=== PATIENT | female | born 1975 | race Hispanic/Latino ===

== ENCOUNTER 2021-06-12 22:56 | Emergency (ER) | payer BC, OTHER ==
[2021-06-13] MEDS ORDERED: MORPHINE 4 MG/ML SYR ONE (00:21)
[2021-06-13] MEDS ORDERED: NA CHLORIDE 0.9% 1,000 ML ONE (00:22)
[2021-06-13] MEDS ORDERED: ONDANSETRON 4 MG/2 ML VIAL ONE (00:22)
[2021-06-13 00:28] LABS: Absolute Lymphocytes (CBC) 1.3 K/uL (0.7-4.9); Hematocrit 37.2 % (36.0-45.0); Lymphocytes % 24.6 % (15.3-44.8); MPV 8.5 fL (7.6-11.3); RBC Red Blood Cell Count 4.52 M/uL (3.86-4.86)
[2021-06-13 00:54] LABS: Albumin 3.3 g/dL (3.4-5.0); Bilirubin Total 0.2 mg/dL (0.2-1.0); Potassium 3.2 mmol/L (3.5-5.1); Protein, Total 7.2 g/dL (6.4-8.2)
[2021-06-13 02:32] LABS: Urine Specific Gravity/Preg >1.030 (1.005-1.030)
[2021-06-13 02:47] LABS: Urine Bacteria 20-50 /HPF (<20); Urine Mucus 2+ /HPF (NONE SEEN); Urine RBC <5 /HPF (NONE SEEN)
[2021-06-13] MEDS ORDERED: POTASSIUM 25 MEQ EFFERV TAB ONE (03:15)
[2021-06-13] MEDS ORDERED: KETOROLAC 30 MG/ML INJ ONE (03:15)
[2021-06-13] MEDS ORDERED: CEFTRIAXONE 1000 MG/VIAL ONE (03:15)
[2021-06-13] MEDS ORDERED: NA CHLORIDE 0.9% 50 ML ONE (03:15)
--- NOTE | 2021-06-13 04:01 | EDPHYS ---
Physician Documentation [facility] Name: Magy Quintanilla Age: 45 yrs Sex: Female : 1975 Arrival Date: 06/12/2021 Time: 23:01 Bed 14 Private MD: ED Physician Micha Jovel HPI: 06/12 23:55 This 45 yrs old Female presents to ER via Wheelchair with complaints of Back mh7 Pain. 23:56 The patient complains of pain in the right flank. The pain radiates to the right lower mh7 quadrant. Onset: The symptoms/episode began/occurred today. Modifying factors: The symptoms are alleviated by nothing. the symptoms are aggravated by movement, palpation/percussion. 23:56 Associated signs and symptoms: Pertinent negatives: diarrhea, dizziness, dysuria, mh7 fever, urinary frequency, headache, hematuria, nausea, pain radiating to the lower extremities, vomiting. Severity of pain: At its worst the pain was moderate today, in the emergency department the pain is unchanged. 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 - Social history:: Smoking status: Patient reports the use of cigarette tobacco products, denies chronic smoking, but will smoke occasionally. ROS: 23:56 Constitutional: Negative for fever, chills, and weight loss, Eyes: Negative for injury, mh7 pain, redness, and discharge, ENT: Negative for injury, pain, and discharge, Neck: Negative for injury, pain, and swelling, Cardiovascular: Negative for chest pain, palpitations, and edema, Respiratory: Negative for shortness of breath, cough, wheezing, and pleuritic chest pain, : Negative for injury, bleeding, discharge, and swelling, MS/Extremity: Negative for injury and deformity, Skin: Negative for injury, rash, and discoloration, Neuro: Negative for headache, weakness, numbness, tingling, and seizure, Psych: Negative for depression, anxiety, suicide ideation, homicidal ideation, and hallucinations, Allergy/Immunology: Negative for hives, rash, and allergies, Endocrine: Negative for neck swelling, polydipsia, polyuria, polyphagia, and marked weight changes, Hematologic/Lymphatic: Negative for swollen nodes, abnormal bleeding, and unusual bruising. Exam: 23:56 Head/Face: Normocephalic, atraumatic. Eyes: Pupils equal round and reactive to light, mh7 extra-ocular motions intact. Lids and lashes normal. Conjunctiva and sclera are non-icteric and not injected. Cornea within normal limits. Periorbital areas with no swelling, redness, or edema. Neck: Trachea midline, no thyromegaly or masses palpated, and no cervical lymphadenopathy. Supple, full range of motion without nuchal rigidity, or vertebral point tenderness. No Meningismus. Chest/axilla: Normal chest wall appearance and motion. Nontender with no deformity. No lesions are appreciated. Cardiovascular: Regular rate and rhythm with a normal S1 and S2. No gallops, murmurs, or rubs. Normal PMI, no JVD. No pulse deficits. Respiratory: Lungs have equal breath sounds bilaterally, clear to auscultation and percussion. No rales, rhonchi or wheezes noted. No increased work of breathing, no retractions or nasal flaring. Skin: Warm, dry with normal turgor. Normal color with no rashes, no lesions, and no evidence of cellulitis. MS/ Extremity: Pulses equal, no cyanosis. Neurovascular intact. Full, normal range of motion. Neuro: Awake and alert, GCS 15, oriented to person, place, time, and situation. Cranial nerves II-XII grossly intact. Motor strength 5/5 in all extremities. Sensory grossly intact. Cerebellar exam normal. Normal gait. Psych: Awake, alert, with orientation to person, place and time. Behavior, mood, and affect are within normal limits. 23:56 Constitutional: The patient appears in no acute distress, alert, awake, uncomfortable. 23:56 Abdomen/GI: Inspection: obese Bowel sounds: normal, in all quadrants, Palpation: nontender, in all quadrants, mass, is not appreciated, no appreciated organomegaly, Rectal exam: the exam is deferred, because of patient request, Indicators: McBurney's point is not tender, Hua's sign is negative, Rovsing's sign is negative, Obturator sign is negative, Psoas sign is negative, Liver: no appreciated palpable abnormalities, Hernia: not appreciated. 23:56 Back: normal spinal alignment noted, CVA tenderness, that is moderate, is noted on the right, vertebral tenderness, is not appreciated, muscle spasm, is not present, Straight leg raises: of both lower extremities does not illicit pain. Vital Signs: 23:14 BP 111 / 88; Pulse 101; Resp 18; Temp 99.2(TE); Pulse Ox 100% on R/A; Weight 97.52 kg ll3 (R); Height 5 ft. 10 in. (177.80 cm) (R); Pain 12/11; 06/13 02:32 BP 121 / 77; Pulse 71; Resp 19; Pulse Ox 100% on R/A; 5 04:12 BP 110 / 83; Pulse 66; Resp 18; Pulse Ox 95% on R/A; [facility] 06/12 23:14 Body Mass Index 30.85 (97.52 kg, 177.80 cm) ll3 MDM: 03:59 Differential diagnosis: nephrolithiasis, pyelonephritis, UTI. Data reviewed: [facility], nurses notes, lab test result(s), CBC, electrolytes, urinalysis, UPT: negative radiologic studies, CT scan. Data interpreted: Pulse oximetry: on room air is 100 %. Interpretation: normal. Counseling: I had a detailed discussion with the patient and/or guardian regarding: the historical points, exam findings, and any diagnostic results supporting the discharge/admit diagnosis, lab results, radiology results, the need for outpatient follow up, to return to the emergency department if symptoms worsen or persist or if there are any questions or concerns that arise at home. Response to treatment: the patient's symptoms have markedly improved after treatment. 04:00 [facility] 06[facility]12 23:55 Order name: CBC with Diff; Complete Time: 00:44 [facility] 06/12 23:55 Order name: CMP; Complete Time: 02:27 [facility] 06/12 23:55 Order name: Lipase; Complete Time: 02:27 [facility] 06/12 23:55 Order name: Urine Microscopic Only; Complete Time: 02:48 [facility] 06/13 02:25 Order name: Urine --Ancillary (enter results); Complete Time: 02:33 [facility] 06/13 02:50 Order name: Urine Culture [facility] 06/12 23:55 Order name: IV Saline Lock; Complete Time: 00:18 [facility] 06/12 23:55 Order name: CT Stone Protocol [facility] 06/12 23:55 Order name: Labs collected and sent; Complete Time: 00:18 [facility] 06/12 23:55 Order name: Urine Dipstick-Ancillary (obtain specimen); Complete Time: 02:25 [facility] 06/12 23:55 Order name: Urine Test (obtain specimen); Complete Time: 02: [facility] Administered Medications: 00:26 Drug: NS 0.9% 1000 ml Route: IV; Rate: 1 bolus; Site: left forearm; sm5 01:30 Follow up: IV Status: Completed infusion; IV Intake: 1000ml sm5 00:26 Drug: Zofran (Ondansetron) 4 mg Route: IVP; Site: left forearm; sm5 04:14 Follow up: Response: Nausea is decreased 5 00:26 Drug: morphine 4 mg Route: IVP; Site: left forearm; sm5 04:14 Follow up: Response: Pain is decreased sm5 03:18 Drug: Ketorolac 30 mg Route: IVP; Site: left forearm; sm5 04:14 Follow up: Response: Pain is decreased sm5 03:18 Drug: Potassium Effervescent Tablet 50 mEq Route: PO; sm5 04:13 Follow up: Response: No adverse reaction sm5 03:18 Drug: Rocephin (cefTRIAXone) 1 grams Route: IV; Rate: per protocol; Site: left forearm; sm5 03:30 Follow up: IV Status: Completed infusion; IV Intake: 50ml sm5 Disposition Summary: 06/13/21 04:00 [facility]charge [facility] Symptoms: have improved [facility] Condition: Stable [facility] Diagnosis - [facility]elonephritis [facility] - With: Private Physician - When: 1 - 2 days - Reason: Worsening of condition, Recheck today's complaints, Continuance of care, Re-evaluation by your physician Discharge Instructions: - Discharge Summary Sheet [facility] - Pyelonephritis, Adult, [id number] [facility] Forms: - Medication Reconciliation Form [facility] - Thank You Letter [facility] - Antibiotic Education [facility] - Prescription Opioid Use [facility] Prescriptions: - ketorolac 10 mg Oral tablet - take 1 tablet by ORAL route every 6 hours As needed not to exceed 40 mg in [facility] 24hrs; 12 tablet; Refills: 0, Product Selection Permitted - Cipro 500 mg Oral Tablet - take 1 tablet by ORAL route every 12 hours for 10 days; 20 tablet; Refills: 0, 7 Product Selection Permitted Signatures: Dispatcher [employer] Micha Nascimento MD MD mh7 Cynthia Mittal, RN RN ll3 Shobha Sue RN RN sm5
--- NOTE | 2021-06-13 04:01 | ER ---
Nurse's Notes [facility] Name: Magy Quintanilla Age: 45 yrs Sex: Female : 1975 Arrival Date: 06/12/2021 Time: 23:01 Bed 14 Private MD: Diagnosis: Pyelonephritis Presentation: 06/12 23:14 Chief complaint: Patient states: States went to the dr today and they told her she had ll3 the flu, C/O right sided back pain. Coronavirus screen: At this time, the client does not indicate any symptoms associated with coronavirus-19. Ebola Screen: No symptoms or risks identified at this time. Initial Sepsis Screen: Does the patient meet any 2 criteria? No. Patient's initial sepsis screen is negative. Does the patient have a suspected source of infection? No. Patient's initial sepsis screen is negative. Risk Assessment: Do you want to hurt yourself or someone else? Patient reports no desire to harm self or others. Onset of symptoms was June 12, 2021 at 17:00. 23:14 Method Of Arrival: Wheelchair ll3 23:14 Acuity: MATHEW 3 ll3 Triage Assessment: 23:17 General: Appears uncomfortable, Behavior is calm, cooperative. Pain: Complains of pain ll3 in right low back Pain radiates to right lower quadrant Pain currently is 10 out of 10 on a pain scale. Pain began 1700 Is continuous. Musculoskeletal: Circulation, motion, and sensation intact. Range of motion: states can not walk. 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 - Social history:: Smoking status: Patient reports the use of cigarette tobacco products, denies chronic smoking, but will smoke occasionally. Screenin/12 00:32 Abuse screen: Denies threats or abuse. Denies injuries from another. Nutritional sm5 screening: No deficits noted. Tuberculosis screening: No symptoms or risk factors identified. Fall Risk IV access (20 points). Total Blank Fall Scale indicates No Risk (0-24 pts). Assessment: 00:31 General: Appears in no apparent distress. Behavior is cooperative. Pain: Complains of sm5 pain in right flank and abdomen and right low back. Neuro: No deficits noted. Level of Consciousness is awake, alert, obeys commands, Oriented to person, place, time, situation. Cardiovascular: No deficits noted. Capillary refill < 3 seconds Patient's skin is warm and dry. Respiratory: No deficits noted. Airway is patent Trachea midline Respiratory effort is even, unlabored. 01:40 Reassessment: No changes from previously documented assessment. Patient and/or family 5 updated on plan of care and expected duration. Pain level reassessed. 02:31 Reassessment: No changes from previously documented assessment. sm5 04:12 Reassessment: Patient states feeling better. 5 Vital Signs: 06/12 23:14 BP 111 / 88; Pulse 101; Resp 18; Temp 99.2(TE); Pulse Ox 100% on R/A; Weight 97.52 kg ll3 (R); Height 5 ft. 10 in. (177.80 cm) (R); Pain 10/10; 06/13 02:32 BP 121 / 77; Pulse 71; Resp 19; Pulse Ox 100% on R/A; sm5 04:12 BP 110 / 83; Pulse 66; Resp 18; Pulse Ox 95% on R/A; sm5 06/12 23:14 Body Mass Index 30.85 (97.52 kg, 177.80 cm) ll3 ED Course: 06/12 23:01 Patient arrived in ED. bp1 23:17 Triage completed. ll3 23:17 Arm band placed on right wrist. ll3 23:30 Shobha Sue RN is Primary Nurse. sm5 23:37 Micha Jovel MD is Attending Physician. [facility] 06/13 00:15 Inserted saline lock: 20 gauge in left forearm, using aseptic technique. Blood 5 collected. 00:18 CBC with Diff Sent. sm5 00:19 CMP Sent. sm5 00:19 Lipase Sent. sm5 02:25 Urine Microscopic Only Sent. sm5 02:45 CT Stone Protocol In Process Unspecified. EDMS 04:12 No provider procedures requiring assistance completed. IV discontinued, intact, sm5 bleeding controlled, No redness/swelling at site. Pressure dressing applied. 04:13 Patient has correct armband on for positive identification. Bed in low position. Call 5 light in reach. Side rails up X2. Administered Medications: 00:26 Drug: NS 0.9% 1000 ml Route: IV; Rate: 1 bolus; Site: left forearm; sm5 01:30 Follow up: IV Status: Completed infusion; IV Intake: 1000ml sm5 00:26 Drug: Zofran (Ondansetron) 4 mg Route: IVP; Site: left forearm; sm5 04:14 Follow up: Response: Nausea is decreased sm5 00:26 Drug: morphine 4 mg Route: IVP; Site: left forearm; sm5 04:14 Follow up: Response: Pain is decreased sm5 03:18 Drug: Ketorolac 30 mg Route: IVP; Site: left forearm; sm5 04:14 Follow up: Response: Pain is decreased sm5 03:18 Drug: Potassium Effervescent Tablet 50 mEq Route: PO; sm5 04:13 Follow up: Response: No adverse reaction sm5 03:18 Drug: Rocephin (cefTRIAXone) 1 grams Route: IV; Rate: per protocol; Site: left forearm; sm5 03:30 Follow up: IV Status: Completed infusion; IV Intake: 50ml sm5 Intake: 01:30 IV: 1000ml; Total: 1000ml. sm5 03:30 IV: 50ml; Total: 1050ml. 5 Outcome: 04:00 Discharge ordered by . [facility] 04:13 Discharged to home ambulatory. 5 04:13 Condition: stable 04:13 Discharge instructions given to patient, Instructed on discharge instructions, follow up and referral plans. medication usage, Demonstrated understanding of instructions, follow-up care, medications, Prescriptions given X 2. 04:14 Patient left the ED. 5 Signatures: Dispatcher [employer] EDMS Pebbles Michaels Maurice, MD MD 7 Cynthia Mittal RN RN 3 Shobha Sue RN RN 5
--- NOTE | 2021-06-13 16:04 | RAD REPORT ---
EXAM DESCRIPTION: CT - Stone Protocol - 06/13/2021 7:01 am CLINICAL HISTORY: 45 years, Female, Flank pain;Abd pain COMPARISON: None. TECHNIQUE: Multiple transaxial tomograms of the abdomen and pelvis were performed from the lung base s to the symphysis pubis 3 mm slice thickness at 3 mm interval reconstruction, without administration of IV and oral contrast. Multiplanar reformats in the sagittal and coronal plane were generated and reviewed. This exam was performed according to our departmental dose-optimization protocol, which includes auto mated exposure control, adjustment of the mA and/or kV according to patient size and/or use of iterat joel reconstruction technique. FINDINGS: The lack of IV and oral contrast limits evaluation of solid organs, subtle lesions cannot be excluded. The lung bases demonstrate to be clear. Bilateral breast implants. Grossly the unopacified liver, gallbladder, pancreas, spleen and adrenal glands demonstrate to be wit hin normal limits, no significant focal lesions were identified. The kidneys demonstrate grossly unremarkable. There is no evidence for nephrolithiasis and/or hydro nephrosis. No focal masses were demonstrated. The ureters displays normal appearance with normal caliber, no hydroureter was seen. Grossly the unopacified stomach, small bowel and large bowel demonstrate to be within normal limits. There is no evidence for bowel dilatation/or free air. The urinary bladder demonstrate to be within normal limits. The uterus demonstrate the presence of a high density structure T-shaped in appearance within the endometrial cavity corresponding to a intrau terine device. There are normal bilateral adnexal structures. The aorta demonstrate to be within norm al limits. There is no retroperitoneal lymphadenopathy. There is no evidence for ascites. The res t of the soft tissue demonstrate to be grossly unremarkable. IMPRESSION: No evidence for nephrolithiasis and/or hydronephrosis. Intrauterine device in place. Electronically signed by: Jonh Alcocer MD 06/13/2021 2:51 AM CDT Due to temporary technical issues with the PACS/Fluency reporting system, reports are being signed by the in house radiologists without review as a courtesy to insure prompt reporting. The interpreting radiologist is fully responsible for the content of the report.
[2021-06-13 16:27] VITALS: TEMP 99.2
[2021-06-13 16:30] VITALS: BP 110/83; O2SAT 95
== END 2021-06-13 04:14 | disposition home or self-care (01) ==
LOC: ER 22:56
DX: N12 Tubulo-interstitial nephritis, not specified as acute or chronic (principal); F17.210 Nicotine dependence, cigarettes, uncomplicated
CPT/HCPCS: 96361; 87088; 85025; 87086; 36415; 81025; 81015; 83690; 80053; 76377; 74176; 96375; 96374; 99284; J7030; J2405

== ENCOUNTER 2021-07-28 09:28 | Day surgery (SDC) | payer BC ==
[2021-07-27 08:43] LABS: Absolute Lymphocytes (CBC) 1.9 K/uL (0.7-4.9); Lymphocytes % 26.1 % (15.3-44.8); MPV 7.6 fL (7.6-11.3); RBC Red Blood Cell Count 4.97 M/uL (3.86-4.86)
[2021-07-27 08:56] LABS: Potassium 3.5 mmol/L (3.5-5.1)
--- NOTE | 2021-07-27 08:56 | RAD REPORT ---
EXAM DESCRIPTION: RAD - Chest Pa And Lat (2 Views) - 07/27/2021 8:51 am CLINICAL HISTORY: pre op for surgery Chest pain. COMPARISON: No comparisons FINDINGS: The lungs are clear. The heart is normal in size. No displaced fractures. IMPRESSION: No acute or concerning finding suspected.
--- NOTE | 2021-07-27 13:12 | EKG ---
Test Date: 2021-07-27 Test Time: 08:25:36 Instrument Technician Apprentice: PERRY MEASUREMENT RESULTS: Intervals: Rate: 72 MS: 150 QRSD: 98 QT: 410 QTc: 448 [place]rall: P: 62 MS: 150 QRS: 7 T: -15 INTERPRETIVE STATEMENTS: Normal sinus rhythm Inferior infarct, age undetermined Cannot rule out Anterior infarct, age undetermined Abnormal ECG No previous ECG available for comparison Electronically Signed On 07-27-21 13:11:29 CDT by Feliciano Posada
[2021-07-28] MEDS ORDERED: Ringers Lactate 1,000 ML IV ONE (10:22)
[2021-07-28] MEDS ORDERED: CEFOXITIN SODIUM 1 GM/VIAL ONE (10:22)
[2021-07-28] MEDS ORDERED: propofoL 200 MG/20 ML VIAL IV ONE (12:33)
[2021-07-28] MEDS ORDERED: MIDAZOLAM HCL 2 MG/2 ML INJ ONE (12:34)
[2021-07-28] MEDS ORDERED: LIDOCAINE 2% MPF 5 ML VIAL ONE (12:35)
[2021-07-28] MEDS ORDERED: FENTANYL CITR 100 MCG/2 ML ONE (12:35)
[2021-07-28] MEDS ORDERED: ONDANSETRON 4 MG/2 ML VIAL ONE (12:35)
[2021-07-28] MEDS ORDERED: dexAMETHasone 10 MG/ML VIAL ONE (12:52)
[2021-07-28] MEDS ORDERED: HYDROCODONE/APAP 7.5/325 MG TAB PO PRN (13:24)
--- NOTE | 2021-07-28 13:31 | P.OP ---
Date of Service: 07/28/21 Preop diagnosis: Symptomatic hemorrhoids Postop diagnosis: Same, complex in nature with external and internal components Procedure performed: Exam under anesthesia, rigid proctoscopy, complex hemorrhoidectomy x2 Surgeon: Avery Guajardo MD Stucco Worker: None Estimated blood loss: Minimal Specimen: Anterior hemorrhoid and posterior hemorrhoid Findings: As above Anesthesia: General Complications: None Drains: None Fluids and blood products: Nonapplicable Disposition: Recovery room Operative note: Patient brought to the OR and placed in the supine position. General anesthesia begun and patient placed in the lithotomy position. Patient prepped and draped in usual sterile fashion. Exam under anesthesia and rigid proctoscopy revealed complex hemorrhoids in the anterior midline in the posterior midline with external and internal components. Marcaine 0.5% infiltrated locally for postop pain control. Then harmonic scalpel used to excise both hemorrhoid complex. Patient had thromboses in both hemorrhoids. Bleeding controlled with cautery. Both hemorrhoids sent to pathology as specimen after being appropriately labeled. Then sterile dressing applied and patient awakened. Patient taken to recovery room in good general condition. CC:
[2021-07-28] MEDS: MORPHINE 4 MG/ML SYR ONE ×4 (13:41→13:56)
[2021-07-28] MEDS ORDERED: HYDROCODONE/APAP 7.5/325 MG TAB ONE (14:35)
[2021-07-28 15:02] VITALS: BP 98/63; TEMP 97.1; O2SAT 96
== END 2021-07-28 15:00 | disposition home or self-care (01) ==
LOC: OR 09:28
PROVIDERS: ATTEND Surgery
PROC: 0DJD8ZZ Inspection of Lower Intestinal Tract, Via Natural or Artificial Opening Endoscopic (ICD-10-PCS; 2021-07-28)
PROC: 06BY0ZC Excision of Hemorrhoidal Plexus, Open Approach (ICD-10-PCS; 2021-07-28)
PROC: 06BY0ZC Excision of Hemorrhoidal Plexus, Open Approach (ICD-10-PCS; principal; 2021-07-28 11:15)
DX: K64.8 Other hemorrhoids (principal); K64.4 Residual hemorrhoidal skin tags; J42 Unspecified chronic bronchitis; Z20.822 Contact with and (suspected) exposure to COVID-19
CPT/HCPCS: 45300; 46260; 46083; 93005; 85025; 80048; 36415; 88304; 71046; U0003; J2704; J2250; J3010; J1100; J7120; J0694; J2405